=== PATIENT | female | born 1955 | race Caucasian/White ===

== ENCOUNTER 2021-07-09 10:42 | Emergency (ER) | payer SELFPAY ==
[2021-07-09] MEDS ORDERED: Sodium Chloride 0.9% 1000 ML 1,000 ML IV STA (11:42)
--- NOTE | 2021-07-09 11:50 | ERPHSYRPT ---
- History of Present Illness Time Seen by Provider: 07/09/21 11:30 Source: patient Exam Limitations: no limitations Patient Subjective Stated Complaint: pt states she has had increased cough since finishing her steroid yestrday. states she has not been able to eat or drink much recently d/t nausea and diarrhea Triage Nursing Assessment: pt alert and oriented, answers questions approp. pt ambulatory with slow steady gait noted. respriations nonlabored. pt reports shortness of breath with exertion. skin pink warm and dry Physician History: Patient is a 65-year-old female known Covid positive x17 days presents to our ED with complaints of cough and generalized weakness. Patient states that she has been experiencing decreased appetite. Patient is nauseous and admits to diarrhea. She just completed her course of steroids yesterday. Patient also completed treatment with monoclonal antibody. Patient symptoms have been constant. Symptoms are moderate in intensity. No specific worsening improving factors. Patient denies shortness of breath. No fever. Patient voices no other complaints or concerns at this time. Severity: moderate Modifying Factors: Improves With: nothing Associated Symptoms: denies symptoms, cough, weakness, No shortness of breath, No chills, No fever Allergies/Adverse Reactions: pork derived (porcine) Adverse Reaction (Verified 07/09/21 11:59) [employer] exemption shellfish derived Adverse Reaction (Verified 07/09/21 11:59) anab[employer] exemption Hx Tetanus, Diphtheria Vaccination/Date Given: No Hx Influenza Vaccination/Date Given: No Hx Pneumococcal Vaccination/Date Given: No Immunizations Up to Date: No Travel Risk - International Travel Have you traveled outside of the country in past 3 weeks: No - Coronavirus Screening Symptoms: Shortness of Breath, Vomiting/Diarrhea - Vaccine Status Have you recieved a Covid-19 vaccination: No - Past Medical History Pertinent Past Medical History: Yes Endocrine Medical History: Diabetes Type II Other Medical History: recent covid - Social History Smoking Status: Never smoker Exposure to second hand smoke: No Drug Use: none Patient Lives Alone: No - Nursing Vital Signs Nursing Vital Signs: Initial Vital Signs Temperature 98.1 F 07/09/21 11:26 Pulse Rate 78 07/09/21 11:26 Respiratory Rate 18 07/09/21 11:26 Blood Pressure 117/70 07/09/21 11:26 O2 Sat by Pulse Oximetry 100 07/09/21 11:26 Pain Scale Pain Intensity 4 - Physical Exam SpO2: 100 - Course Nursing assessment & vital signs reviewed: Yes Ordered Tests: Active Orders 24 hr Category Date Time Status IV Insertion STAT Care 07/09/21 11:50 Active CHEST 1 VIEW (PORTABLE) Stat Exams 07/09/21 11:51 Completed CBC W DIFF Stat Lab 07/09/21 11:09 Completed CMP Stat Lab 07/09/21 11:09 Completed Manual Differential NC Stat Lab 07/09/21 11:09 Completed TROPONIN Q3H Lab 07/09/21 11:09 Completed TROPONIN Q3H Lab 07/09/21 15:00 Ordered TROPONIN Q3H Lab 07/09/21 18:00 Ordered TROPONIN Q3H Lab 07/09/21 21:00 Ordered TROPONIN Q3H Lab 07/10/21 00:00 Ordered UA W/RFX UR CULTURE Stat Lab 07/09/21 11:51 Ordered Medication Summary Discontinued Medications Generic Name Dose Route Start Last Admin Trade Name Freq PRN Reason Stop Dose Admin Sodium Chloride 1,000 mls @ 999 mls/hr 07/09/21 11:42 07/09/21 12:01 Sodium Chloride 0.9% 1000 Ml IV 07/09/21 12:42 999 mls/hr .Q1H1M STA Administration Sodium Chloride Confirm 07/09/21 11:57 Sodium Chloride 0.9% 1000 Ml Administered 07/09/21 11:58 Dose 1,000 mls @ ud .ROUTE .STK-MED ONE Lab/Rad Data: Laboratory Result Diagrams 07/09/21 11:09 07/09/21 11:09 Laboratory Results 07/09/21 07/09/21 07/09/21 Range/Units 11:09 11:09 11:09 WBC 6.4 (4.0-10.5) K/mm3 RBC 4.84 (4.1-5.4) M/mm3 Hgb 14.0 (12.0-16.0) gm/dl Hct 41.5 (35-47) % MCV 85.7 (78-100) fl MCH 28.9 (26-32) pg MCHC 33.7 (32-36) g/dl RDW 12.8 (11.5-14.0) % Plt Count 265 (150-450) K/mm3 MPV 10.0 (7.5-11.0) fl Gran % 56.4 (36.0-66.0) % Eos # (Auto) 0.07 (0-0.5) Absolute Lymphs (auto) 2.26 (1.0-4.6) Absolute Monos (auto) 0.44 (0.0-1.3) Lymphocytes % 35.4 (24.0-44.0) % Monocytes % 6.9 (0.0-12.0) % Eosinophils % 1.1 (0.00-5.0) % Basophils % 0.2 (0.0-0.4) % Absolute Granulocytes 3.61 (1.4-6.9) Basophils # 0.01 (0-0.4) Sodium 141 (137-145) mmol/L Potassium 3.8 (3.5-5.1) mmol/L Chloride 105 (98-107) mmol/L Carbon Dioxide 22 (22-30) mmol/L Anion Gap 17.6 H (5-15) MEQ/L BUN 15 (7-17) mg/dL Creatinine 0.69 (0.52-1.04) mg/dL Estimated GFR > 60.0 ML/MIN Glucose 124 H (74-106) mg/dL Calcium 9.4 (8.4-10.2) mg/dL Total Bilirubin 0.80 (0.2-1.3) mg/dL AST 68 H (14-36) U/L ALT 63 H (0-35) U/L Alkaline Phosphatase 75 (38-126) U/L Troponin I < 0.012 (0.000-0.034) ng/mL Serum Total Protein 7.6 (6.3-8.2) g/dL Albumin 4.4 (3.5-5.0) g/dL - Progress Progress: improved Progress Note: Case discussed with Dr. Hernandez. Dr. Hernandez will see patient next week. We attempted to obtain a stool sample however patient was unable to produce stool in our ED. Patient receiving IV fluids. Patient does not want to be admitted. Patient states that she can tolerate oral fluids. She has been tolerating oral fluids since the onset of her Covid. Labs do not show any electrolyte derangements. Chest x-ray performed show clearing of airspace disease. Patient appears to be improving. Patient has a history of colon cancer with a partial resection. Patient has had ongoing issues with diarrhea since bowel resection. Her current bout of diarrhea may be exacerbated by the current Covid infection. Patient declines admission. She will continue oral hydration at home. We arranged follow-up with Dr. Hernandez next week. Plan of care discussed with daughter who is at bedside. She agrees to follow-up with Dr. Hernandez as planned. Dr. Hernandez's office will contact patient with a follow-up date and time. They voiced no other complaints or concerns at this time. Will discharge home. Portions of this note were created with voice recognition technology. There may be grammatical, spelling, punctuation or sound alike errors 07/09/21 12:[address] Svitlana Will see patient in: office Counseled pt/family regarding: lab results, diagnosis, need for follow-up, rad results - Departure Departure Disposition: Home Clinical Impression: COVID, Cough, Diarrhea, Generalized weakness Condition: Stable Critical Care Time: No Additional Instructions: Discharge/Care Plan DONOVAN IBANEZ was seen on 07/09/21 in the Emergency Room. The patient was counseled regarding Diagnosis,Lab results, Imaging studies, need for follow up and when to return to the Emergency Room. Prescriptions given: Discharge Note I have spoken with the patient and/or caregivers. I have explained the patient's condition, diagnosis and treatment plan based on the information available to me at this time. I have answered the patient's and/or caregiver's questions and addressed any concerns. The patient and/or caregivers have as good understanding of the patient's diagnosis, condition and treatment plan as can be expected at this point. The vital signs have been stable. The patient's condition is stable and appropriate for discharge from the emergency department. The patient will pursue further outpatient evaluation with the primary care physician or other designated or consulting physician as outlined in the discharge instructions. The patient and/or caregivers are agreeable to this plan of care and follow-up instructions have been explained in detail. The patient and/or caregivers have received these instruction. The patient/and or caregivers are aware that any significant change in condition or worsening of symptoms should prompt an immediate return to this or the closest emergency department or call 911.
[2021-07-09] MEDS ORDERED: Sodium Chloride 0.9% 1000 ML 1,000 ML ONE (11:57)
[2021-07-09 11:59] LABS: Absolute Neutrophil Ct (ANC) 3.61 (1.4-6.9); BASOPHIL % 0.2 % (0.0-0.4); Basophil (Absolute #) 0.01 (0-0.4); Eosinophil % 1.1 % (0.00-5.0); Eosinophil (Absolute #) 0.07 (0-0.5); Hematocrit 41.5 % (35-47); Lymphocyte (Absolute #) 2.26 (1.0-4.6); Lymphocytes % 35.4 % (24.0-44.0); Mean Cell Volume 85.7 fl (78-100); Mean Corpuscular Hemoglobin 28.9 pg (26-32); Mean Corpuscular Hgb Concent. 33.7 g/dl (32-36); Monocyte (Absolute #) 0.44 (0.0-1.3); Monocytes % 6.9 % (0.0-12.0); Neutrophil % 56.4 % (36.0-66.0); Platelet Count 265 K/mm3 (150-450); Red Blood Count 4.84 M/mm3 (4.1-5.4); Red Cell Distribution Width 12.8 % (11.5-14.0); White Blood Count 6.4 K/mm3 (4.0-10.5)
[2021-07-09 12:07] LABS: ALBUMIN 4.4 g/dL (3.5-5.0); ALKALINE PHOSPHATASE 75 U/L (38-126); ANION GAP 17.6 MEQ/L (5-15); BLOOD UREA NITROGEN 15 mg/dL (7-17); CHLORIDE 105 mmol/L (98-107); Calcium 9.4 mg/dL (8.4-10.2); Carbon Dioxide 22 mmol/L (22-30); Creatinine 1 0.69 mg/dL (0.52-1.04); EST GLOMERULAR FILTRATION RATE > 60.0 ML/MIN; Glucose 124 mg/dL (74-106); Potassium 3.8 mmol/L (3.5-5.1); SGOT/AST 68 U/L (14-36); SGPT/ALT 63 U/L (0-35); SODIUM 141 mmol/L (137-145); Total Protein 7.6 g/dL (6.3-8.2)
--- NOTE | 2021-07-09 12:20 | XRAY ---
Indication: Cough and short of breath. Positive Covid 19. Comparison: July 01, 2021. Portable demonstrates clearing of previous right infrahilar airspace disease with minimal residual. Remaining heart, lungs, and bony thorax normal.
[2021-07-09 13:23] VITALS: BP 116/76; PULSE 76; O2SAT 98
[2021-07-09 13:31] LABS: Lymphocytes 34 % (24-44); Monocyte 7 % (0.0-12.0); Neutrophils 59 % (36.0-66.0); Platelet Estimate NORMAL (NORMAL); Total Cells Counted 100
== END 2021-07-09 13:30 | disposition home or self-care (01) ==
LOC: ED 10:42
DX: U07.1 COVID-19 (principal); R05.9 Cough, unspecified; R19.7 Diarrhea, unspecified; R53.1 Weakness; E11.8 Type 2 diabetes mellitus with unspecified complications
CPT/HCPCS: 36000; 36415; 71045; 80053; 84484; 85025; 96360; 99284